=== PATIENT | female | born 1990 | race Caucasian/White ===

== ENCOUNTER 2018-11-04 08:53 | Emergency (ER) | payer OTHER ==
[~2018-11-04] VITALS: Ht 180.3 cm; Wt 54.4 kg
[~2018-11-04 08:53] MED LIST: CIPROFLOXACIN500 M1 PO; METRONIDAZOLE500 M4 PO; SPRINTEC1 EACH PO; ULTRAM 50MG TAB50 MG PO
[2018-11-04] MEDS ORDERED: HYOSCYAMINE0.125 M2 PO (09:20)
[2018-11-04 09:31] LABS: ABSOLUTE NEUTROPHILS 8.8 thou/uL (1.4-8.2); BASOPHILS 0.5 % (0.0-2.0); EOSINOPHILS 0.3 % (0.0-3.0); HEMATOCRIT 40.9 % (37.0-47.0); HEMOGLOBIN 14.1 gm/dL (12.0-15.0); LYMPHOCYTES 17.8 % (24.0-44.0); MCH 31.1 pg (26.0-34.0); MCHC 34.6 g/dL (28.0-37.0); MCV 90.1 fL (80.0-100.0); MONOCYTES 5.1 % (1.0-8.0); PLATELET COUNT 153 thou/uL (150-400); POLYS 76.3 % (36.0-66.0); RBC 4.54 mil/uL (4.20-5.00); RDW 12.3 % (10.5-14.5); WBC 11.6 thou/uL (4.0-11.0)
[2018-11-04 09:39] LABS: CALCIUM 9.2 mg/dL (8.5-10.1); CREATININE 0.7 mg/dL (0.6-1.0); POTASSIUM 3.3 mmol/L (3.5-5.1)
[2018-11-04 09:45] LABS: ALBUMIN 4.2 g/dL (3.4-5.0); TOTAL BILIRUBIN 0.5 mg/dL (<0.1-1.0); TOTAL PROTEIN 7.6 g/dL (6.4-8.2)
[2018-11-04 12:30] LABS: URINE BILIRUBIN NEGATIVE (Negative); URINE BLOOD TRACE (Negative); URINE CLARITY CLEAR; URINE COLOR YELLOW; URINE GLUCOSE-RANDOM* 3+ (Negative); URINE KETONES NEGATIVE (Negative); URINE LEUKOCYTES-REFLEX NEGATIVE (Negative); URINE NITRITE-REFLEX NEGATIVE (Negative); URINE PROTEIN (DIPSTICK) NEGATIVE (Negative); URINE UROBILINOGEN 0.2 E.U./dl (0.2-1.0)
[2018-11-04] MEDS ORDERED: PHENERGAN 25 MG25 M1 PO (12:43)
[2018-11-04] MEDS ORDERED: ZOFRAN ODT4 MG PO (12:43)
[2018-11-04 12:50] VITALS: BP 110/56
== END 2018-11-04 12:50 | disposition home or self-care (01) ==
LOC: ER 08:53
PROVIDERS: Emergency Medicine
DX: R10.84 Generalized abdominal pain (principal); T50.6X5A Adverse effect of antidotes and chelating agents, initial encounter; R11.2 Nausea with vomiting, unspecified; Z79.899 Other long term (current) drug therapy; Y92.89 Other specified places as the place of occurrence of the external cause